=== PATIENT | male | born 1990 | race Caucasian/White ===

== ENCOUNTER 2016-12-09 12:44 | Emergency (ER) | payer SELFPAY ==
[~2016-12-09] VITALS: Ht 180.3 cm; Wt 102.9 kg
[2016-12-09 12:58] VITALS: BP 155/121; PULSE 76; RESP 18; O2SAT 96
--- NOTE | 2016-12-09 15:09 | ED.REPORT ---
HPI-General Illness Date of Service Dec 09, 2016 ED Provider: Ruben Ruiz MD Pt is a 26 y.o. male who presents to the ED c/o nausea, vomiting, and diarrhea onset 1.5 weeks ago. Pt states that he was recently seen at the [place] [facility] for similar sx along with mouth pain and was dx with a dental abscess. Pt states that mouth pain and swelling has improved. He reports associated headache, lower back pain, chills, fever (subjective), lower abdominal pain, dizziness, lightheadedness, and decreased PO intake. He denies cough or rhinorrhea. Pt reports being on Augmentin currently. Nursing Notes Stated Complaint: NAUSEA/ABD PAIN Chief Complaint: Male Abdominal Pain Nursing Notes Reviewed: Yes Allergies: Coded Allergies: Contrast Media (Verified Allergy, Unknown, swollen tongue, 05/20/14) after an MRI Scheduled Amoxicillin/Clav K 875-125 mg (Augmentin 875-125 mg) 1 Each Tablet 1 TABLET PO BID Doxycycline Monohyd (Doxycycline Monohyd) 100 Mg Tablet 100 MG PO BID Scheduled PRN Ondansetron ODT (Zofran ODT) 4 Mg Tablet 4 MG PO Q4H PRN PRN For Nausea General Time Seen by MD: 15:08 Chief Complaint Diarrhea, Vomiting Hx Obtained From: Patient Sudden in Onset?: Yes Onset Occurred: More than a week ago... Context of Onset: Recent antibiotic use Symptom Duration: Since onset Location: : Abdomen: Back: Head: Mouth Quality: Painful Severity: Current: Severe Recent Healthcare: Recent doctor visit Similar Sx Previous: Yes Past Medical History Past Medical History None reported Denies: Hypertension Past Surgical History None reported Ambulatory Status Independent Review of Systems Decreased PO intake. Full Review of Systems Constitutional: Reports: Chills, Fever (Subjective) Ears / Nose / Throat: Reports: Mouth pain Respiratory: Denies: Non-productive cough GI: Reports: Abdominal pain, Diarrhea, Nausea, Vomiting Musculoskeletal: Reports: Back pain Allergy / Immune: Denies: Rhinorrhea Neurologic: Reports: Dizziness, Headache, Lightheaded Complete sys rev & neg: except as marked. Physical Exam Vital Signs Vital Signs Date Time Temp Pulse Resp B/P Pulse Ox O2 Delivery O2 Flow Rate FiO2 12/09/16 18:00 36.5 60 18 159/94 97 Room Air 12/09/16 15:45 68 18 152/93 96 Room Air 12/09/16 12:58 36.2 76 18 155/121 96 Initial VS: Reviewed Head / Eyes: Atraumatic, Normocephalic Extremities: Vascular intact, Neuro intact Skin: Warm, Dry, No cyanosis Neurologic: Alert, Oriented, Nonfocal Psychiatric: Mood/affect normal, Behavior normal, Normal thought content General/Constitutional: Awake, Alert, No acute distress, Well appearing, Well developed, Well hydrated, Well nourished, Not toxic appearing ENT: Atraumatic, Airway patent, Pharynx NL Pharynx / Tonsils / Uvula: Negative: Pharyngeal erythema Sinus: Positive: Tender maxillary L Minimal tenderness to posterior left upper molar Respiratory / Chest: Atraumatic, Breath sounds NL, Breath sounds = bilat, No respiratory distress, No rales, No rhonchi, No wheezing, No retractions, No stridor Cardiovascular: Heart rate NL, Regular rhythm, Heart sounds NL, No gallop, No murmurs, No rubs, Peripheral circulation NL Abdomen: Atraumatic, Soft, No guarding, No rebound Tenderness/Guarding/Rebound: Positive: Tender diffuse Interpretation & Diagnostics Lab Results Interpretation Result Diagram: 12/09/16 1400 12/09/16 1400 Test 12/09/16 14:00 12/09/16 15:20 White Blood Count 5.3th/mm3 (3.8-10.1) Red Blood Count 5.22mil/mm3 (4.40-5.80) Hemoglobin 16.8g/dL (13.8-17.2) Hematocrit 48.2% (41.0-50.0) Mean Corpuscular Volume 92.3fL (81-100) Mean Corpuscular Hemoglobin 32.2pg (27.0-35.0) Mean Corpuscular Hemoglobin Concent 34.9% (32.0-37.0) Red Cell Distribution Width 12.1% (12.3-15.4) Platelet Count 290bil/L (150-400) Neutrophils (%) (Auto) 63.2% (40-74) Lymphocytes (%) (Auto) 28.9% (14-46) Monocytes (%) (Auto) 6.6% (4-12) Eosinophils (%) (Auto) 0.9% (0-5) Basophils (%) (Auto) 0.4% (0-3) Hold Purple Top Tube Received (Received) Hold Blue Top Tube Received (Received) Sodium Level 137mEq/L (134-144) Potassium Level 4.3mEq/L (3.5-5.2) Chloride Level 99mEq/L (97-108) Carbon Dioxide Level 25mmol/L (18-29) Blood Urea Nitrogen 8mg/dL (6-20) Creatinine 0.75mg/dL (0.76-1.27) Estimat Glomerular Filtration Rate 132mL/min (>59) Glucose Level 91mg/dL (60-99) Calcium Level 9.5mg/dL (8.5-10.1) Total Bilirubin 0.3mg/dL (0.0-1.2) Aspartate Amino Transf (AST/SGOT) 16U/L (0-50) Alanine Aminotransferase (ALT/SGPT) 14U/L (0-44) Alkaline Phosphatase 49U/L (25-150) Total Protein 7.6g/dL (6.4-8.4) Albumin 4.4g/dL (3.4-5.0) Lipase 18U/L (13-60) Hold [place] Top Tube Received (Received) Hold Meléndez Top Tube Received (Received) Urine Color Yellow (YELLOW) Urine Appearance Clear (CLEAR,HAZY) Urine pH 5.5 (5.0-8.0) Urine Specific [place] 1.010 (1.003-1.035) Urine Protein Negativemg/dL (NEG,TRACE) Urine Glucose (UA) Negativemg/dL (NEGATIVE) Urine Ketones Negativemg/dL (NEGATIVE) Urine Occult Blood Negative (NEGATIVE) Urine Nitrite Negative (NEGATIVE) Urine Bilirubin Negative (NEGATIVE) Urine Urobilinogen Normalmg/dL (NORMAL) Urine Leukocyte Esterase Negative (NEGATIVE) Urine RBC 0-2/hpf (0-2) Urine WBC 0-5/hpf (0-5) Urine Epithelial Cells None/hpf (NONE-MOD) Urine Crystals None seen (NONE SEEN) Urine Bacteria None/hpf (NONE-FEW) Urine Hyaline Casts None/lpf (NONE) Urine Granular Casts None seen (NONE SEEN) Urine Waxy Casts None seen (NONE SEEN) Urine Red Blood Cell Casts None seen (NONE SEEN) Urine White Blood Cell Casts None seen (NONE SEEN) Urine Mucus None seen (None Seen) Urine Trichomonas None seen (NONE SEEN) Urine Yeast None (NONE SEEN) Urinalysis Comment None Urine Culture Reflexed Not indicated Hold Urine Received (Received) Re-Eval/Medical Decision Med Decision/Clinical Course 26-year-old male presenting complaining of left facial pain and diarrhea. Left facial pain approximate one week which is improving on Augmentin which she was prescribed for a left presumed dental infection. Complaining of watery diarrhea for several days. No dental pain or parapharyngeal abscess identified. Left maxillary sinus tenderness. Abdomen soft no rebound or guarding. Labs unremarkable. Abdominal pain resolved. Diarrhea may be related to antibiotics. Stool studies were ordered though patient was unable to have any bowel movements while he was here for greater than 3 hours. Send him home with plans to bring stool back should he have any persistent diarrhea. Order has been placed for diarrheal studies. Given left maxillary sinus tenderness suspect possible sinusitis. Patient has completed several days of antibiotics. Recommend he continue another week of antibiotics. He reports the Augmentin was very expensive therefore I have given a prescription for doxycycline and augmentin and he may determine which is cheaper. Return precautions given. Source of Hx: Old records Time of Eval: 17:17 Re-Evaluation/Progress Note: Pt rechecked. Discussed plan for discharge, pt understands and agrees with plan. Counseled Regarding: Diagnosis, Lab results, Need for follow-up, When/why to return to ED Discharge & Departure Primary Impression: Acute bacterial sinusitis Additional Impression: Diarrhea Disposition: Home Discharge Condition All VS Reviewed: Yes Condition: Stable Additional Instructions: It appears that you have acute bacterial sinusitis. I will prescribe you antibiotics for your sinus infection. You can take the prescribed Zofran as needed for nausea. I recommend you collect a stool sample which you can bring into the lab for evaluation. Seek care if you develop a fever, have increased vomiting or diarrhea, or develop any new or worsening symptoms. Referrals: [facility]OPCP (PCP) [facility] Attestation Portions of this note were transcribed by Diallo Jones. I, Dr. Ruiz personally performed the history, physical exam and medical decision-making; I reviewed and confirmed the accuracy of the information in the transcribed note. Signed by: Mitchell Hartmna, 12/09/16 and 1818. copies to: [facility] Ruben Ruiz MD Dec 09, 2016 15:09 DIALLO JONES Dec 09, 2016 15:22
[2016-12-09] MEDS ORDERED: Ondansetron 2 mg/mL 2 mL Inj IVPUSH PRN (15:30)
[2016-12-09] MEDS ORDERED: Ondansetron 2 mg/mL 2 mL Inj IVPUSH ONE (15:30)
[2016-12-09 15:45] VITALS: BP 152/93; PULSE 68; RESP 18; O2SAT 96
[2016-12-09 15:51] LABS: BASOPHILS % (AUTO) 0.4 % (0-3); EOSINOPHILS % (AUTO) 0.9 % (0-5); MONOCYTES % (AUTO) 6.6 % (4-12); Mean Corpuscular Hemoglobin 32.2 pg (27.0-35.0); Mean Corpuscular Volume 92.3 fL (81-100); NEUTROPHILS % (AUTO) 63.2 % (40-74); Platelet Count 290 bil/L (150-400)
[2016-12-09 16:49] LABS: APPEARANCE,URINE CLEAR (CLEAR,HAZY); COLOR,URINE YELLOW (YELLOW); OCCULT BLOOD,URINE NEGATIVE (NEGATIVE); PH,URINE 5.5 (5.0-8.0); UROBILINOGEN,URINE NORMAL (NORMAL)
[2016-12-09] MEDS ORDERED: DOXY-232 PO (17:25)
[2016-12-09] MEDS ORDERED: AMOX-366 PO (17:25)
[2016-12-09] MEDS ORDERED: ONDA4TAB9 PO (17:25)
[2016-12-09 18:00] VITALS: BP 159/94; PULSE 60; RESP 18; O2SAT 97
== END 2016-12-09 18:02 | disposition home or self-care (01) ==
LOC: SED 12:44
DX: J01.80 Other acute sinusitis (principal); B96.89 Other specified bacterial agents as the cause of diseases classified elsewhere; R19.7 Diarrhea, unspecified; M54.5 Low back pain; R42 Dizziness and giddiness; R63.8 Other symptoms and signs concerning food and fluid intake; Z91.041 Radiographic dye allergy status
CPT/HCPCS: 36415; 80053; 81000; 83690; 85025; 96374; 96375; 96376; 99285; J2270; J2405